=== PATIENT | female | born 1990 | race Asian ===

== ENCOUNTER 2018-11-20 23:21 | Emergency (ER) | payer MEDICAID, OTHER ==
[~2018-11-20] VITALS: Ht 162.6 cm; Wt 81.8 kg
[2018-11-20 23:28] VITALS: BP 108/76
== END 2018-11-21 00:38 | disposition left against medical advice (07) ==
LOC: EMS 23:25
DX: R11.2 Nausea with vomiting, unspecified (principal); Z53.21 Procedure and treatment not carried out due to patient leaving prior to being seen by health care provider

== ENCOUNTER 2019-01-24 23:08 | Emergency (ER) | payer OTHER ==
[~2019-01-24] VITALS: Ht 162.6 cm; Wt 81.8 kg
[2019-01-25 01:01] VITALS: BP 146/76
[2019-01-25] MEDS ORDERED: IBUPROFEN 600 MG TABLET PO ONE (01:15)
== END 2019-01-25 01:21 | disposition home or self-care (01) ==
LOC: EMS 23:09
DX: M79.674 Pain in right toe(s) (principal)